=== PATIENT | male | born 1980 | race Two or more races ===

== ENCOUNTER 2020-04-22 03:35 | Emergency (ER) | payer SELFPAY ==
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
[2020-04-22] MEDS ORDERED: Lidocaine 1% with EPINEPHrine 1:100,000 20 ML MDV INJECT ONE (03:56)
[2020-04-22] MEDS ORDERED: Lidocaine 1% with EPINEPHrine 1:100,000 20 ML MDV ONE (03:57)
[2020-04-22 04:07] LABS: BLOOD UREA NITROGEN,BUN 8 mg/dL (7.0-18.0); CARBON DIOXIDE,CO2 25.1 mmol/L (21.0-32.0); CHLORIDE,CL 81 mmol/L (98-107); GLUCOSE RANDOM 123 mg/dL (74-106); POTASSIUM,K 2.7 mmol/L (3.5-5.1); SODIUM,NA 123 mmol/L (136-148)
[2020-04-22] MEDS ORDERED: Diphtheria,Pertussis(Acell),Tetanus Vaccine 0.5 ML Syringe IM ONE (04:16)
--- NOTE | 2020-04-22 04:57 | CT ---
Indication: Fall, right facial trauma Technique: Nonenhanced axial CT imaging through the head. Sagittal and coronal reconstructions are provided. Comparison: None Findings: There is no intracranial hemorrhage, edema, or mass effect. There is normal attenuation of the brain parenchyma. The ventricles are normal in size. The basal cisterns are patent. The calvarium is intact. The mastoid air cells are aerated. Right supraorbital hematoma and edema are noted. Impression: No acute intracranial process. Right supraorbital hematoma. Please note that all CT scans at this facility use dose modulation, iterative reconstruction, and/or weight-based dosing when appropriate to reduce radiation dose to as low as reasonably achievable. Dictated by Robbie Wiley MD @ Apr 22 2020 4:51AM Signed by Dr. Robbie Wiley @ Apr 22 2020 4:55AM
--- NOTE | 2020-04-22 05:00 | CT ---
Indication: Fall, facial trauma Technique: Nonenhanced axial CT images through the face. Sagittal and coronal reconstructions are provided. Comparison: None Findings: There is a right supraorbital subcutaneous hematoma with overlying edema. There is no orbital fracture. The globes, extraocular muscles, and optic nerves are intact. There is no retrobulbar hematoma or proptosis. There is no facial fracture. Mild mucosal thickening/small mucous retention cysts are noted at the floor of the maxillary sinus. The paranasal sinuses are otherwise aerated. The visualized skullbase is intact. Impression: Right supraorbital hematoma. No acute facial fracture. No evidence of orbital injury. Please note that all CT scans at this facility use dose modulation, iterative reconstruction, and/or weight-based dosing when appropriate to reduce radiation dose to as low as reasonably achievable. Dictated by Robbie Wiley MD @ Apr 22 2020 4:55AM Signed by Dr. Robbie Wiley @ Apr 22 2020 4:59AM
[2020-04-22] MEDS ORDERED: Diphtheria,Pertussis(Acell),Tetanus Vaccine 0.5 ML Syringe ONE (06:14)
== END 2020-04-22 06:15 | disposition home or self-care (01) ==
LOC: MW.ED 03:35
DX: S01.81XA Laceration without foreign body of other part of head, initial encounter (principal)
CPT/HCPCS: 12013; 36415; 70450; 70450-26; 70486; 70486-26; 80048; 85025; 90471; 99282; 99285-25

== ENCOUNTER 2020-04-23 07:29 | Emergency (ER) | payer SELFPAY ==
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
[2020-04-23] MEDS ORDERED: LORazepam 2 MG/ML SDV IVPUSH ONE (07:39)
[2020-04-23] MEDS ORDERED: Sodium Chloride 0.9% 1,000 ML IV ONE ×2 (07:39→11:31)
[2020-04-23] MEDS ORDERED: chlordiazePOXIDE 25 MG Cap PO ONE (07:40)
[2020-04-23] MEDS ORDERED: Ondansetron 4 MG/2 ML SDV IVPUSH ONE (08:09)
[2020-04-23 08:10] LABS: BLOOD UREA NITROGEN,BUN 6 mg/dL (7.0-18.0); CARBON DIOXIDE,CO2 26.1 mmol/L (21.0-32.0); CHLORIDE,CL 69 mmol/L (98-107); GLUCOSE RANDOM 129 mg/dL (74-106); LIPASE 398 U/L (73-393); POTASSIUM,K 2.5 mmol/L (3.5-5.1)
[2020-04-23] MEDS ORDERED: Ondansetron 4 MG/2 ML SDV ONE (08:10)
[2020-04-23 08:12] LABS: SODIUM,NA 109 mmol/L (136-148)
[2020-04-23] MEDS ORDERED: Thiamine 100 MG in Sodium Chloride 0.9% 100 ML IV ONE (08:27)
[2020-04-23] MEDS ORDERED: Magnesium Sulfate (4.06 MEQ/ML) 5 GM/10 ML SDV IV STA (08:27)
[2020-04-23] MEDS ORDERED: Magnesium Sulfate/Water 2 GM/50 ML BAG IV ONE (08:45)
[2020-04-23] MEDS ORDERED: Aspirin 325 MG Tab PO ONE (09:00)
[2020-04-23] MEDS ORDERED: Folic Acid 50 MG/10 ML MDV IV SCH (09:00)
[2020-04-23] MEDS ORDERED: MVI, Adult with Vitamin K 10 ML, Thiamine 100 MG, Folic Acid 1 MG in Sodium Chloride 0.... IV ONE ×4 (09:05)
[2020-04-23] MEDS ORDERED: Iopamidol 755 MG/ML 500 ML Multipack Bottle IVPUSH STA (09:11)
--- NOTE | 2020-04-23 10:19 | CT ---
INDICATION: Elevated LFT, rhabdo. TECHNIQUE: CT of the abdomen and pelvis with 100 cc Isovue 370 IV contrast. Coronal and sagittal reconstructions. COMPARISON: None. FINDINGS: Exam is limited by motion artifact in the mid abdomen. The liver is mildly enlarged measuring approximately 20 cm in length. Marked diffuse hepatic steatosis. Hepatic and portal veins are patent. Dilated gallbladder without wall thickening or radiopaque stones. No biliary dilation. The spleen, pancreas, and adrenal glands are negative. Symmetric enhancement of the kidneys. No hydronephrosis. No obstructing urinary calculi. Mildly distended urinary bladder which is otherwise normal in appearance. The prostate gland is unremarkable. No bowel dilation. Redundant sigmoid colon. Negative appendix. No intraperitoneal free air or fluid. No lymphadenopathy. The bones are unremarkable. The lung bases are clear. IMPRESSION: 1. Mild hepatomegaly with marked diffuse hepatic steatosis. 2. Dilated gallbladder without secondary signs of inflammation. 3. Mildly distended urinary bladder. 4. No other acute findings in the abdomen or pelvis. Please note that all CT scans at this facility use dose modulation, iterative reconstruction, and/or weight-based dosing when appropriate to reduce radiation dose to as low as reasonably achievable. Dictated by Yesy San MD @ Apr 23 2020 10:08AM Signed by Dr. Yesy San @ Apr 23 2020 10:17AM
== END 2020-04-23 14:10 ==
LOC: MW.ED 07:29
DX: E87.1 Hypo-osmolality and hyponatremia (principal); M62.82 Rhabdomyolysis; F10.239 Alcohol dependence with withdrawal, unspecified; Y90.6 Blood alcohol level of 120-199 mg/100 ml; Z20.828 Contact with and (suspected) exposure to other viral communicable diseases
CPT/HCPCS: 36415; 74177; 80053; 80307; 81001; 82550; 82570; 83690; 83735; 83930; 83935; 84100; 84295; 84300; 84484; 84540; 84560; 85025; 87635; 93005; 96365; 96367; 96375; 99285; A9270; J2060; J2405; J3411; J3475; J7030; Q9967; U0002